=== PATIENT | male | born 1980 | race Caucasian/White ===

== ENCOUNTER 2019-04-30 15:40 | Inpatient (IN) ==
[~2019-04-30 15:40] MED LIST: KETAMINE HCL INJ 50 MG/ML 10 ML VIAL IV ONE
[2019-04-30] MEDS ORDERED: NALOXONE HCL 0.4 MG/1 ML VIAL/CARP IV STA (15:50)
[2019-04-30] MEDS ORDERED: SODIUM CHLORIDE 0.9% 1000ML 1,000 ML IV SCH (16:00)
[2019-04-30 16:24] LABS: Basophils # (auto) 0.04 K/uL (0-0.2); Basophils % (auto) 0.4 %; Eosinophils # (auto) 0.94 K/uL (0-0.5); Eosinophils % (auto) 9.9 %; Hematocrit (blood only) 43.8 % (42-52); Hemoglobin 15.5 g/dL (14.0-18.0); Immature Granulocytes # (auto) 0.01 K/uL (0.00-0.02); Immature Granulocytes % (auto) 0.1 %; Lymphocytes # (auto) 2.81 K/uL (1.2-3.4); Lymphocytes % (auto) 29.6 %; Mean Corpuscular Hgb Conc 35.4 g/dL (32-36); Mean Corpuscular Volume 88.8 fL (80-100); Mean Platelet Volume 10.1 fL (7.4-10.4); Monocytes # (auto) 0.73 K/uL (0.11-0.59); Monocytes % (auto) 7.7 %; Neutrophils # (auto) 4.97 K/uL (1.4-6.5); Neutrophils % (auto) 52.3 %; Platelet Count 181 K/uL (130-400); RDW Coefficient of Variation 13.2 % (11.5-14.5); RDW Standard Deviation 42.9 fL (36.4-46.3); Red Blood Count 4.93 M/uL (4.7-6.1)
[2019-04-30 16:31] LABS: INR 1.1 (0.9-1.1); Prothrombin Time 10.8 Seconds (9.0-12.0)
[2019-04-30 16:33] LABS: Base Excess VBG 2.3 mEq/L; Oxygen Saturation VBG 60.2 %; pH VBG 7.37 (7.36-7.41)
--- NOTE | 2019-04-30 16:44 | XRay Report ---
XR chest 1V portable HISTORY: weakness COMPARISON: None. FINDINGS: The lungs are clear. Cardiac silhouette is normal in size. No pleural effusions. No pneumot horax. IMPRESSION: No acute process. Electronically signed by: Junito Dooley M.D. 04/30/2019 4:43 PM
[2019-04-30 16:48] LABS: Alanine Aminotransferase 193 U/L (12-78); Albumin Level 3.9 gm/dl (3.4-5.0); Aspartate Aminotransferase 112 U/L (15-37); BUN Creatinine Ratio 13.3 (10-20); Blood Urea Nitrogen 13 mg/dl (7-18); Calcium 9.1 mg/dl (8.5-10.1); Carbon Dioxide 29 mmol/L (21-32); Chloride 106 mmol/L (98-107); Creatinine Clr Calc Pharmacy 111.5 ml/min; Est GFR (African American) 111.5; Est GFR (Non-African American) 96.2; Glucose 72 mg/dl (70-99); Magnesium 2.1 mg/dl (1.8-2.4); Potassium 4.2 mmol/L (3.5-5.1); Sodium 140 mmol/L (136-145)
--- NOTE | 2019-04-30 16:56 | CT Scan Report ---
CT head/brain wo con CLINICAL HISTORY: 38 years-old Male with ams. Acutely altered mental status TECHNIQUE: Multiple axial CT images of the head were obtained without contrast. A dose lowering tech nique was utilized adhering to the principles of ALARA. CT DOSE: 2150.48 mGycm COMPARISON: None. FINDINGS: Motion degraded exam. No acute intracranial hemorrhage, midline shift, intracranial mass, hydrocephal us, territorial ischemia or abnormal extra-axial collection. The calvarium is intact. Mild mucosal thickening about the ethmoid air cells. Mastoid air cells are clear. Soft tissues and orbits are unremarkable. IMPRESSION: Motion degraded exam without acute intracranial abnormality. The above report was generated using voice recognition software. It may contain grammatical, syntax o r spelling errors. Electronically signed by: Laron Mixon M.D. 04/30/2019 4:55 PM
[2019-04-30 16:58] LABS: Albumin Globulin Ratio 1.1 (0.9-2); Alkaline Phosphatase 93 U/L (45-117); Bilirubin,Total 0.6 mg/dl (0.2-1); Creatine Kinase 112 U/L (39-308); Globulin 3.4 gm/dl (2.5-4.0); Total Protein 7.3 gm/dl (6.4-8.2); Troponin I < 0.015 ng/ml (0-0.045)
[2019-04-30 17:09] LABS: Acetaminophen < 2 ug/ml (10-30); Salicylate 2.9 mg/dl (2.8-20)
[2019-04-30 17:17] LABS: Appearance Urine Clear (Clear); Bilirubin Urine Negative (Negative); Blood Urine Negative (Negative); Color Urine Yellow; Glucose Urine UA Negative (Negative); Ketones Urine Negative (Negative); Leukocyte Esterase Urine Negative (Negative); Nitrite Urine Negative (Negative); Protein Urine Negative (Negative); Specific Gravity Urine 1.009 (1.000-1.030); Urobilinogen Urine Negative (Negative); pH Urine 7.5 (4.5-7.5)
[2019-04-30 17:37] LABS: Amphetamines+Metham, Urine Neg (Neg); Barbiturates, Urine Neg (Neg); Benzodiazepine, Urine Pos (Neg); Cocaine, Urine Neg (Neg); MDMA (Ecstacy), Urine Neg (Neg); Methadone, Urine Neg (Neg); Opiate, Urine Neg (Neg); Phencyclidine, Urine Neg (Neg)
[2019-04-30] MEDS ORDERED: HALOPERIDOL LACTATE 5 MG/ML 1 ML VIAL IM STA ×2 (17:49→18:16)
[2019-04-30] MEDS ORDERED: LORazepam 2 MG/ML VIAL (IM USE) IM STA (18:17)
[2019-04-30] MEDS ORDERED: LORazepam 2 MG/4 ML VIAL ONE (18:19)
--- NOTE | 2019-04-30 19:39 | History & Physical Report ---
Date of Service April 30, 2019 Assessment & Plan (1) Altered mental status: 2nd to apparent overdose of probably multiple substances. Tox screen + for benzodiazepines (tox screen was obtained BEFORE he had received ativan in the ER). However, benzo overdose would not fully explain his symptoms and presentation. Suspect some other illicit hallucinogenic agent such as bath salts, etc. He needed copious amounts of sedatives in the ER and nearly required leather restraints due to his combativeness. Thus, will place him in the ICU in the event he needs 1:1 sitter, IV sedatives (bolus and/or drip), further restraints, or even intubation for airway protection while receiving sedation. I do not see any metabolic causes of his presentation or infectious etiology. CT head was negative. Present on Admission?: Yes (2) Chronic narcotic dependence: Takes 8mg of daily suboxone. His mother apparently administers this to him daily. He does not have the bottle of suboxone in his possession at his home per the significant other. Goes to suboxone clinic in [facility] I do not think he overdosed on narcotics as he had little response to copious amounts of narcan. Present on Admission?: Yes (3) Social anxiety disorder: Severe by history. Does not follow with psych or any medical provider. Present on Admission?: Yes (4) Benzodiazepine overdose: Tox screen positive for benzos but this is unlikely to be the sole cause of his presentation. See above. Present on Admission?: Yes (5) Abnormal LFTs: Suspect toxin-related. Numerous illicit substances can cause a transaminitis. Will repeat LFTs in the am. No evidence of tylenol overdose (no tylenol bottles found at the scene, etc). Doubt related to alcohol (etoh level 0). Present on Admission?: Yes (6) DVT prophylaxis: lovenox 40mg daily FEN - NPO, D5NS w/ KCL at 125cc/hr, repeat BMP/mag in am. significant other updated at bedside total time about 70 min patient to be admitted to ICU; care d/w ICU attending, Dr Huber History of Present Illness Chief Complaint: altered mental status Primary Care Provider: NO PCP 38yo male with history of severe anxiety disorder, social anxiety disorder, benzodiazepine abuse, and chronic suboxone use who presents from his home in [place] via EMS after having been found in his bathroom at home with altered mental status. The patient was considerably altered and could not provide any information during my assessment. Thus, all information was gathered from the chart as well as from his girlfriend with whom he lives. The patient's girlfriend states that at 745 this am she was preparing to go to work and Mr Arora at that time was awake, alert, oriented and in his usual state of health. The patient was at his home all day with his 2 children, ages 7 and 13. 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 Sometime about 330pm the patient's step-father left the house and went to the business next door. A few minutes later, upon his return to the house, the step-father found Mr Arora in the bathroom altered. He was apparently leaning up against the wall with a bowl of dog food close by and was altered. EMS was summoned to the house. Upon their arrival 4 doses of intra-nasal narcan was given to him. He was then given 2 more doses of IV narcan upon ambulance transport. He ultimately needed restraints. The narcan given in the ambulance had only a transient effect. Upon arrival to [facility] he continued to be altered. Additional narcan of 2mg was given IV without any effect on his mental status per staff members. He was combative, and needed 10mg of IM haldol and 2mg of IM ativan to become more calm. His girlfriend reports no obvious illicit drug use recently or in the past. He does not have access to prescription benzodiazepines or other controlled substances. He takes chronic suboxone, 8mg daily, but his mother keeps it at her house and she administers it to him herself. His girlfriend takes 2 antidepressants (SSRIs) but no controlled substances. Girlfriend reports he drinks little alcohol (1-2 beers/month) but the ER record states he drank earlier in the day. Lastly, his girlfriend reports that Mr Arora has had significant stressors causing increased anxiety. He apparently has been suffering from bad dreams which has led to worsening anxiety. He has had concerns about his girlfriend's health as well. During my assessment the patient was altered, shifting constantly on the bed, and was combative. Allergies Allergy/AdvReac Type Severity Reaction Status Date / Time codeine Allergy Mild Unknown Unverified 04/30/19 16:11 Penicillins Allergy Mild Unknown Unverified 04/30/19 16:11 Home Medications Home Medications Medication Instructions Recorded Confirmed Type Medical Marijuana 1 dose INHALATION UD PRN 04/30/19 04/30/19 History buprenorphine HCl 8 mg SUBLINGUAL QAM 04/30/19 04/30/19 History Past Med/Surg History Medical History Social anxiety disorder (Chronic) Panic disorder (Chronic) Benzodiazepine abuse (Acute) Benzodiazepine dependence (Acute) Overuse of medication (Acute) Chronic narcotic dependence (Chronic) No known health problems Surgical History No history of previous surgery Family History Other Family history non-contributory Social History marital status: Single marital status details: has significant other Current Living Situation: Significant Other Current Living Situation Comment: lives with girlfriend and 2 children in [place] current occupational status: employed current occupation: works for [employer] business Feels Safe at Home: Yes Smoking Status: Current every day smoker packs per day: 1 ; Hx Alcohol Use: Yes Alcohol type: beer Alcohol Intake Frequency: Holidays/Special Occasions Hx Substance Use: No Review of Systems Review of Systems: Unobtainable due to mental health condition and Unobta inable due to cognitive status Physical Exam Constitutional: average body habitus, + altered mental status and + disheveled Eyes: PERRL (pupils 2 mm b/l) ENMT: Mouth: + dry oral mucous membranes and + poor dentition Throat: no posterior oropharynx abnormality Neck: trachea midline, no thyromegaly Respiratory: normal respiratory effort, lungs clear to auscultation Cardiovascular: Rate/Rhythm: regular rate and regular rhythm Heart Sounds: normal S1 and normal S2; no murmur Vessels: posterior tibial pulses present and dorsalis pedis pulses present; no JVD Gastrointestinal (Abdomen): normal bowel sounds, soft, nontender, no hepatosplenomegaly Musculoskeletal: moving all 4 limbs equally on the gurney Skin: 2 band-aids present from prior IM injections; no rash; well-tanned skin Neurologic: downgoing babinski's; moves all 4 limbs; no nystagmus; PERRL; DTRs 1+ b/l Psychiatric: Orientation: + not alert Lymphatic: no cervical lymphadenopathy Results & Data Vital Signs (Past 12 Hours) Vital Signs Temp Pulse Pulse Resp BP BP Pulse Ox 04/30/19 19:30 76 25 H 95/52 L 93 04/30/19 19:00 80 27 H 103/61 94 04/30/19 18:27 90 22 135/85 96 04/30/19 17:16 98 H 20 112/56 L 04/30/19 16:46 82 23 132/78 04/30/19 16:03 80 20 118/84 98 04/30/19 15:48 36.7 C 89 20 112/77 97 04/30/19 15:46 80 21 112/77 97 Laboratory Results Laboratory Results - last 24 hr 04/30/19 04/30/19 04/30/19 16:02 16:02 16:02 WBC 9.50 RBC 4.93 Hgb 15.5 Hct 43.8 MCV 88.8 MCH 31.4 MCHC 35.4 RDW Std Deviation 42.9 RDW Coeff of Hussein 13.2 Plt Count 181 MPV 10.1 Immature Gran % (Auto) 0.1 Neut % (Auto) 52.3 Lymph % (Auto) 29.6 Nye % (Auto) 7.7 Eos % (Auto) 9.9 Baso % (Auto) 0.4 Immature Gran # (Auto) 0.01 Neut # (Auto) 4.97 Lymph # (Auto) 2.81 Nye # (Auto) 0.73 H Eos # (Auto) 0.94 H Baso # (Auto) 0.04 PT 10.8 INR 1.1 VBG pH VBG pCO2 VBG pO2 VBG HCO3 VBG O2 Saturation VBG Base Excess Barometric Pressure Sodium 140 Potassium 4.2 Chloride 106 Carbon Dioxide 29 Anion Gap 5.0 BUN 13 Creatinine 0.99 Est Cr Clr Drug Dosing 111.5 Est GFR ( Amer) 111.5 Est GFR (Non-Af Amer) 96.2 BUN/Creatinine Ratio 13.3 Glucose 72 Calcium 9.1 Magnesium 2.1 Total Bilirubin 0.6 AST 112 H ALT 193 H Alkaline Phosphatase 93 Ammonia Total Creatine Kinase 112 Troponin I < 0.015 Total Protein 7.3 Albumin 3.9 Globulin 3.4 Albumin/Globulin Ratio 1.1 TSH 3.890 Urine Color Urine Appearance Urine pH Ur Specific [place] Urine Protein Urine Glucose (UA) Urine Ketones Urine Blood Urine Nitrite Urine Bilirubin Urine Urobilinogen Ur Leukocyte Esterase Salicylates Urine Opiates Screen Ur Methadone, Qual Acetaminophen Urine Barbiturates Ur Phencyclidine (PCP) U Amphetamin/Meth Scrn MDMA (Ecstasy) Screen U OH-Alprazolam Confrm U Benzodiazepines Scrn 7-Amino Clonazepam Ur Nordiazepam Confirm U OH-ethylflurazepam U Lorazepam Cnf GC/MS U Oxazepam Confm GC/MS Ur Temazepam Confirm U OH-Triazolam Confirm U OH-Midazolam Confirm Ur Cocaine Metabolite U Marijuana (THC) Screen Ethyl Alcohol mg/dL 04/30/19 04/30/19 04/30/19 16:02 16:02 16:02 WBC RBC Hgb Hct MCV MCH MCHC RDW Std Deviation RDW Coeff of Hussein Plt Count MPV Immature Gran % (Auto) Neut % (Auto) Lymph % (Auto) Nye % (Auto) Eos % (Auto) Baso % (Auto) Immature Gran # (Auto) Neut # (Auto) Lymph # (Auto) Nye # (Auto) Eos # (Auto) Baso # (Auto) PT INR VBG pH VBG pCO2 VBG pO2 VBG HCO3 VBG O2 Saturation VBG Base Excess Barometric Pressure Sodium Potassium Chloride Carbon Dioxide Anion Gap BUN Creatinine Est Cr Clr Drug Dosing Est GFR ( Amer) Est GFR (Non-Af Amer) BUN/Creatinine Ratio Glucose Calcium Magnesium Total Bilirubin AST ALT Alkaline Phosphatase Ammonia 35.9 H Total Creatine Kinase Troponin I Total Protein Albumin Globulin Albumin/Globulin Ratio TSH Urine Color Urine Appearance Urine pH Ur Specific [place] Urine Protein Urine Glucose (UA) Urine Ketones Urine Blood Urine Nitrite Urine Bilirubin Urine Urobilinogen Ur Leukocyte Esterase Salicylates 2.9 Urine Opiates Screen Ur Methadone, Qual Acetaminophen < 2 L Urine Barbiturates Ur Phencyclidine (PCP) U Amphetamin/Meth Scrn MDMA (Ecstasy) Screen U OH-Alprazolam Confrm U Benzodiazepines Scrn 7-Amino Clonazepam Ur Nordiazepam Confirm U OH-ethylflurazepam U Lorazepam Cnf GC/MS U Oxazepam Confm GC/MS Ur Temazepam Confirm U OH-Triazolam Confirm U OH-Midazolam Confirm Ur Cocaine Metabolite U Marijuana (THC) Screen Ethyl Alcohol mg/dL < 3.0 04/30/19 04/30/19 04/30/19 16:02 17:00 17:00 WBC RBC Hgb Hct MCV MCH MCHC RDW Std Deviation RDW Coeff of Hussein Plt Count MPV Immature Gran % (Auto) Neut % (Auto) Lymph % (Auto) Nye % (Auto) Eos % (Auto) Baso % (Auto) Immature Gran # (Auto) Neut # (Auto) Lymph # (Auto) Nye # (Auto) Eos # (Auto) Baso # (Auto) PT INR VBG pH 7.37 VBG pCO2 51 H VBG pO2 29 VBG HCO3 29 VBG O2 Saturation 60.2 VBG Base Excess 2.3 Barometric Pressure 734.8 Sodium Potassium Chloride Carbon Dioxide Anion Gap BUN Creatinine Est Cr Clr Drug Dosing Est GFR ( Amer) Est GFR (Non-Af Amer) BUN/Creatinine Ratio Glucose Calcium Magnesium Total Bilirubin AST ALT Alkaline Phosphatase Ammonia Total Creatine Kinase Troponin I Total Protein Albumin Globulin Albumin/Globulin Ratio TSH Urine Color Yellow Urine Appearance Clear Urine pH 7.5 Ur Specific [place] 1.009 Urine Protein Negative Urine Glucose (UA) Negative Urine Ketones Negative Urine Blood Negative Urine Nitrite Negative Urine Bilirubin Negative Urine Urobilinogen Negative Ur Leukocyte Esterase Negative Salicylates Urine Opiates Screen Neg Ur Methadone, Qual Neg Acetaminophen Urine Barbiturates Neg Ur Phencyclidine (PCP) Neg U Amphetamin/Meth Scrn Neg MDMA (Ecstasy) Screen Neg U OH-Alprazolam Confrm U Benzodiazepines Scrn Pos H 7-Amino Clonazepam Ur Nordiazepam Confirm U OH-ethylflurazepam U Lorazepam Cnf GC/MS U Oxazepam Confm GC/MS Ur Temazepam Confirm U OH-Triazolam Confirm U OH-Midazolam Confirm Ur Cocaine Metabolite Neg U Marijuana (THC) Screen Neg Ethyl Alcohol mg/dL 04/30/19 17:00 WBC RBC Hgb Hct MCV MCH MCHC RDW Std Deviation RDW Coeff of Hussein Plt Count MPV Immature Gran % (Auto) Neut % (Auto) Lymph % (Auto) Nye % (Auto) Eos % (Auto) Baso % (Auto) Immature Gran # (Auto) Neut # (Auto) Lymph # (Auto) Nye # (Auto) Eos # (Auto) Baso # (Auto) PT INR VBG pH VBG pCO2 VBG pO2 VBG HCO3 VBG O2 Saturation VBG Base Excess Barometric Pressure Sodium Potassium Chloride Carbon Dioxide Anion Gap BUN Creatinine Est Cr Clr Drug Dosing Est GFR ( Amer) Est GFR (Non-Af Amer) BUN/Creatinine Ratio Glucose Calcium Magnesium Total Bilirubin AST ALT Alkaline Phosphatase Ammonia Total Creatine Kinase Troponin I Total Protein Albumin Globulin Albumin/Globulin Ratio TSH Urine Color Urine Appearance Urine pH Ur Specific [place] Urine Protein Urine Glucose (UA) Urine Ketones Urine Blood Urine Nitrite Urine Bilirubin Urine Urobilinogen Ur Leukocyte Esterase Salicylates Urine Opiates Screen Ur Methadone, Qual Acetaminophen Urine Barbiturates Ur Phencyclidine (PCP) U Amphetamin/Meth Scrn MDMA (Ecstasy) Screen U OH-Alprazolam Confrm Pending U Benzodiazepines Scrn 7-Amino Clonazepam Pending Ur Nordiazepam Confirm Pending U OH-ethylflurazepam Pending U Lorazepam Cnf GC/MS Pending U Oxazepam Confm GC/MS Pending Ur Temazepam Confirm Pending U OH-Triazolam Confirm Pending U OH-Midazolam Confirm Pending Ur Cocaine Metabolite U Marijuana (THC) Screen Ethyl Alcohol mg/dL Diagnostic Findings 1. cxr - no acute findings 2. ekg - NSR, no ST changes 3. CT head - no acute findings Code Status & VTE Plan Code Status full code VTE Prophylaxis Plan VTE Prophylaxis will be ordered: Yes PG Care Time/CCT Total # of Minutes Spent Total Time Spent with Patient: Total time spent is greater than 50% in coordination of care (as documented) at patient's floor/unit and/or counseling patient: (1) Altered mental status Altered mental status type: unspecified Qualified Code(s): R41.82 - Altered mental status, unspecified (2) Benzodiazepine overdose Encounter type: initial encounter Injury intent: undetermined intent Qualified Code(s): T42.4X4A - Poisoning by benzodiazepines, undetermined, initial encounter
--- NOTE | 2019-04-30 19:58 | Emergency Department Note ---
Entered by Reema Meade acting as a scribe for Ignacio Worthy M.D. History of Present Illness General Chief complaint: Unresponsive Stated complaint: UNRESPONSIVE Time Seen by Provider: 04/30/19 15:49 Source: EMS and other (girlfriend) Limitations: altered mental status History of Present Illness Onset (ago): minute(s) (prior to arrival) Location: head Pain Consistency: + other (episode) Quality: + other (unresponsiveness) The patient is a 38 year old male who presents to the Emergency Room with complaints of an episode of unresponsiveness starting prior to arrival. Per EMS, the patients son found him on the bathroom floor unresponsive. They state that his son called his grandfather, the patients father, to help. They report that he called 911. They state that upon arrival the patient was not responsive. They report that he was leaning up against the wall with a full size pillow and a tote of dog food underneath him. They report that they ended up giving him 4 of intranasal Narcan and 2 IV. They note that each time he would come to, but the n would go back out. They note he did admit to having 2 alcoholic drinks today. They note that his legs were in soft restraints on the way here as he was kicking when they first arrived. The patients girlfriend state that she lives with him and he was fine this morning. She reports that he is on Suboxone, but it is delivered to his house every morning. She notes that he also has a medical marijuana card. HPI and ROS are limited secondary to altered mental status. Home Medications Home Medications Medication Instructions Recorded Confirmed Type Medical Marijuana 1 dose INHALATION UD PRN 04/30/19 04/30/19 History buprenorphine HCl 8 mg SUBLINGUAL QAM 04/30/19 04/30/19 History Allergies Allergy/AdvReac Type Severity Reaction Status Date / Time codeine Allergy Mild Unknown Unverified 04/30/19 16:11 Penicillins Allergy Mild Unknown Unverified 04/30/19 16:11 Past Med/Surg History Medical History Social anxiety disorder (Chronic) Panic disorder (Chronic) Benzodiazepine abuse (Acute) Benzodiazepine dependence (Acute) Overuse of medication (Acute) No known health problems Family History Other Family history non-contributory Social History marital status: Single Current Living Situation: Significant Other current occupational status: employed Feels Safe at Home: Yes Smoking Status: Current every day smoker Review of Systems HPI and ROS are limited secondary to altered mental status. Physical Exam Vital Signs Vital Signs - 24 hr 04/30/19 15:46 04/30/19 15:48 04/30/19 16:03 Temperature 36.7 C Temperature Source Oral Sepsis Recent Fever Within 48 Hours No Sepsis New/Unexplained Change in Mental Status No Sepsis Action Taken by Nursing No Action Required Pulse Rate 80 89 80 Pulse Rate [Right Finger] Pulse Rate from SpO2 Sensor 81 79 Pulse Rhythm Regular Pulse Rhythm [Right Finger] Pulse Strength Normal Pulse Strength [Right Finger] Respiratory Rate 21 20 20 Respiratory Effort / Characteristics Non-Labored Respiratory Depth Normal Respiratory Pattern Regular Blood Pressure 112/77 112/77 118/84 Blood Pressure [Left Arm] Blood Pressure Mean 88 88 95 Blood Pressure Mean [Left Arm] Blood Pressure Position Lying Blood Pressure Position [Left Arm] Pulse Oximetry 97 97 98 Oxygen Delivery Method Room Air 04/30/19 16:46 04/30/19 17:16 04/30/19 18:27 Temperature Temperature Source Sepsis Recent Fever Within 48 Hours Sepsis New/Unexplained Change in Mental Status Sepsis Action Taken by Nursing Pulse Rate 82 98 H Pulse Rate [Right Finger] 90 Pulse Rate from SpO2 Sensor Pulse Rhythm Pulse Rhythm [Right Finger] Pulse Strength Pulse Strength [Right Finger] Respiratory Rate 23 20 22 Respiratory Effort / Characteristics Respiratory Depth Respiratory Pattern Blood Pressure 132/78 112/56 L Blood Pressure [Left Arm] 135/85 Blood Pressure Mean 96 74 Blood Pressure Mean [Left Arm] 101 Blood Pressure Position Blood Pressure Position [Left Arm] Pulse Oximetry 96 Oxygen Delivery Method 04/30/19 19:00 04/30/19 19:30 Temperature Temperature Source Sepsis Recent Fever Within 48 Hours Sepsis New/Unexplained Change in Mental Status Sepsis Action Taken by Nursing Pulse Rate Pulse Rate [Right Finger] 80 76 Pulse Rate from SpO2 Sensor Pulse Rhythm Pulse Rhythm [Right Finger] Regular Pulse Strength Pulse Strength [Right Finger] Normal Respiratory Rate 27 H 25 H Respiratory Effort / Characteristics Non-Labored Non-Labored Respiratory Depth Normal Normal Respiratory Pattern Regular Regular Blood Pressure Blood Pressure [Left Arm] 103/61 95/52 L Blood Pressure Mean Blood Pressure Mean [Left Arm] 75 66 Blood Pressure Position Blood Pressure Position [Left Arm] Sitting Sitting Pulse Oximetry 94 93 Oxygen Delivery Method Room Air Room Air GENERAL: Eyes closed. Alert to loud verbal stimuli. Occasionally trying to climb out of bed. HENT: Normocephalic, atraumatic. Oropharynx unremarkable. EYES: Normal conjunctiva. Pupils are 4 mm and minimally reactive. Sclera non- icteric. NECK: Supple. No nuchal rigidity. RESPIRATORY: Clear to auscultation. No wheezes. Normal respiratory effort. CARDIAC: Normal rate. Normal rhythm. Extremities warm and well perfused. GI: Soft, non-distended. No tenderness to palpation. No rebound or guarding. No masses. RECTAL: Deferred. MUSCULOSKELETAL: Atraumatic. Chest examination reveals no tenderness. There is no CVA tenderness to palpation. Slight abrasion to his right knuckles. LOWER EXTREMITIES: Calves are equal size bilaterally and non-tender. No edema. Small abrasion on his left banegas. NEURO: Moving all extremities. Will reply to his name. No clonus. No facial droop. SKIN: Warm and dry. No rash or jaundice noted. Course 1454: Past medical records reviewed. The patient was evaluated in room A1. A complete history and physical exam was performed. 1625: I reevaluated the patient and he has not had much change in his respons iveness. 1712: I reevaluated the patient and he is still the same. 1740: I reevaluated the patient and he has had no significant change in his condition. I updated his girlfriend and step-father on his condition. I discussed the test results and treatment plan with them. They verbally agree and understand. 1815: I discussed the patient'scse with Dr. Maria Del Carmen Pennington. He will evaluate the patient for further management. 1827: I reevaluated the patient and he had to be placed in restraints as he became combative. 1845: I discussed the patient's case with Dr. Iza Pennington. He will evaluate the patient and is at bedside as Dr. Banerjee passed his case off. Consultations Consultation #1: I discussed the patient'scse with Dr. Maria Del Carmen Pennington. He will evaluate the patient for further management. Time: 18:15 Consultation #2: I discussed the patient's case with Dr. Couch [facility]. He will evaluate the patient and is at bedside as Dr. Banerjee passed his case off. Time: 18:45 Administered Medications Discontinued Medications Haloperidol Lactate (Haldol) 5 mg IM NOW STA Stop: 04/30/19 17:50 Last Admin: 04/30/19 18:06 Dose: 5 mg Documented by: [id number] Haloperidol Lactate (Haldol) 5 mg IM NOW STA Stop: 04/30/19 18:17 Last Admin: 04/30/19 18:23 Dose: 5 mg Documented by: [id number] Sodium Chloride (Nss 1000ml) 1,000 mls @ 999 mls/hr IV .Q1H1M MAGDA Stop: 04/30/19 17:00 Last Infusion: 04/30/19 17:47 Dose: 0 mls/hr Documented by: [id number] Admin: 04/30/19 16:00 Dose: 999 mls/hr Documented by: [id number] Lorazepam (Ativan) 2 mg IM NOW STA Stop: 04/30/19 18:18 Last Admin: 04/30/19 18:23 Dose: 2 mg Documented by: [id number] Lorazepam (Ativan) Confirm Administered Dose 2 mg .ROUTE .STK-MED ONE Stop: 04/30/19 18:20 Last Admin: 04/30/19 18:23 Dose: Not Given Documented by: [id number] Naloxone HCl (Narcan) 2 mg IV NOW STA Stop: 04/30/19 15:51 Last Admin: 04/30/19 16:00 Dose: 2 mg Documented by: [id number] Medical Decision Making Differential Diagnosis Differential diagnoses includes but is not limited to toxic, metabolic, infectious, traumatic, cardiac, neurologic, hematologic, psychiatric and inflammatory etiologies. Medical Records Attestation: I reviewed the patient's medical records. Home Medications Current Medication List: was personally reviewed by me Laboratory Data Attestation: I reviewed the patient's lab results. Result diagrams: 04/30/19 16:02 04/30/19 16:02 Lab Results 04/30/19 04/30/19 04/30/19 Range/Units 16:02 16:02 16:02 WBC 9.50 (4.8-10.8) K/uL RBC 4.93 (4.7-6.1) M/uL Hgb 15.5 (14.0-18.0) g/dL Hct 43.8 (42-52) % MCV 88.8 (80-100) fL MCH 31.4 (25-34) pg MCHC 35.4 (32-36) g/dL RDW Std Deviation 42.9 (36.4-46.3) fL RDW Coeff of Hussein 13.2 (11.5-14.5) % Plt Count 181 (130-400) K/uL MPV 10.1 (7.4-10.4) fL Immature Gran % (Auto) 0.1 % Neut % (Auto) 52.3 % Lymph % (Auto) 29.6 % [place] % (Auto) 7.7 % Eos % (Auto) 9.9 % Baso % (Auto) 0.4 % Immature Gran # (Auto) 0.01 (0.00-0.02) K/uL Neut # (Auto) 4.97 (1.4-6.5) K/uL Lymph # (Auto) 2.81 (1.2-3.4) K/uL [place] # (Auto) 0.73 H (0.11-0.59) K/uL Eos # (Auto) 0.94 H (0-0.5) K/uL Baso # (Auto) 0.04 (0-0.2) K/uL PT 10.8 (9.0-12.0) Seconds INR 1.1 (0.9-1.1) VBG pH (7.36-7.41) VBG pCO2 (38-50) mmHg VBG pO2 mmHg VBG HCO3 mmol/L VBG O2 Saturation % VBG Base Excess mEq/L Barometric Pressure mm/Hg Sodium 140 (136-145) mmol/L Potassium 4.2 (3.5-5.1) mmol/L Chloride 106 (98-107) mmol/L Carbon Dioxide 29 (21-32) mmol/L Anion Gap 5.0 (3-11) BUN 13 (7-18) mg/dl Creatinine 0.99 (0.6-1.4) mg/dl Est Cr Clr Drug Dosing 111.5 ml/min Est GFR ( Amer) 111.5 Est GFR (Non-Af Amer) 96.2 BUN/Creatinine Ratio 13.3 (10-20) Glucose 72 (70-99) mg/dl Calcium 9.1 (8.5-10.1) mg/dl Magnesium 2.1 (1.8-2.4) mg/dl Total Bilirubin 0.6 (0.2-1) mg/dl AST 112 H (15-37) U/L ALT 193 H (12-78) U/L Alkaline Phosphatase 93 (45-117) U/L Ammonia (11-32) umol/L Total Creatine Kinase 112 (39-308) U/L Troponin I < 0.015 (0-0.045) ng/ml Total Protein 7.3 (6.4-8.2) gm/dl Albumin 3.9 (3.4-5.0) gm/dl Globulin 3.4 (2.5-4.0) gm/dl Albumin/Globulin Ratio 1.1 (0.9-2) TSH 3.890 (0.300-4.500) uIu/ml Urine Color Urine Appearance (Clear) Urine pH (4.5-7.5) Ur Specific [place] (1.000-1.030) Urine Protein (Negative) Urine Glucose (UA) (Negative) Urine Ketones (Negative) Urine Blood (Negative) Urine Nitrite (Negative) Urine Bilirubin (Negative) Urine Urobilinogen (Negative) Ur Leukocyte Esterase (Negative) Salicylates (2.8-20) mg/dl Urine Opiates Screen (Neg) Ur Methadone, Qual (Neg) Acetaminophen (10-30) ug/ml Urine Barbiturates (Neg) Ur Phencyclidine (PCP) (Neg) U Amphetamin/Meth Scrn (Neg) MDMA (Ecstasy) Screen (Neg) U Benzodiazepines Scrn (Neg) Ur Cocaine Metabolite (Neg) U Marijuana (THC) Screen (Neg) Ethyl Alcohol mg/dL (0-3) mg/dl 04/30/19 04/30/19 04/30/19 Range/Units 16:02 16:02 16:02 WBC (4.8-10.8) K/uL RBC (4.7-6.1) M/uL Hgb (14.0-18.0) g/dL Hct (42-52) % MCV (80-100) fL MCH (25-34) pg MCHC (32-36) g/dL RDW Std Deviation (36.4-46.3) fL RDW Coeff of Hussein (11.5-14.5) % Plt Count (130-400) K/uL MPV (7.4-10.4) fL Immature Gran % (Auto) % Neut % (Auto) % Lymph % (Auto) % [place] % (Auto) % Eos % (Auto) % Baso % (Auto) % Immature Gran # (Auto) (0.00-0.02) K/uL Neut # (Auto) (1.4-6.5) K/uL Lymph # (Auto) (1.2-3.4) K/uL [place] # (Auto) (0.11-0.59) K/uL Eos # (Auto) (0-0.5) K/uL Baso # (Auto) (0-0.2) K/uL PT (9.0-12.0) Seconds INR (0.9-1.1) VBG pH (7.36-7.41) VBG pCO2 (38-50) mmHg VBG pO2 mmHg VBG HCO3 mmol/L VBG O2 Saturation % VBG Base Excess mEq/L Barometric Pressure mm/Hg Sodium (136-145) mmol/L Potassium (3.5-5.1) mmol/L Chloride (98-107) mmol/L Carbon Dioxide (21-32) mmol/L Anion Gap (3-11) BUN (7-18) mg/dl Creatinine (0.6-1.4) mg/dl Est Cr Clr Drug Dosing ml/min Est GFR ( Amer) Est GFR (Non-Af Amer) BUN/Creatinine Ratio (10-20) Glucose (70-99) mg/dl Calcium (8.5-10.1) mg/dl Magnesium (1.8-2.4) mg/dl Total Bilirubin (0.2-1) mg/dl AST (15-37) U/L ALT (12-78) U/L Alkaline Phosphatase (45-117) U/L Ammonia 35.9 H (11-32) umol/L Total Creatine Kinase (39-308) U/L Troponin I (0-0.045) ng/ml Total Protein (6.4-8.2) gm/dl Albumin (3.4-5.0) gm/dl Globulin (2.5-4.0) gm/dl Albumin/Globulin Ratio (0.9-2) TSH (0.300-4.500) uIu/ml Urine Color Urine Appearance (Clear) Urine pH (4.5-7.5) Ur Specific [place] (1.000-1.030) Urine Protein (Negative) Urine Glucose (UA) (Negative) Urine Ketones (Negative) Urine Blood (Negative) Urine Nitrite (Negative) Urine Bilirubin (Negative) Urine Urobilinogen (Negative) Ur Leukocyte Esterase (Negative) Salicylates 2.9 (2.8-20) mg/dl Urine Opiates Screen (Neg) Ur Methadone, Qual (Neg) Acetaminophen < 2 L (10-30) ug/ml Urine Barbiturates (Neg) Ur Phencyclidine (PCP) (Neg) U Amphetamin/Meth Scrn (Neg) MDMA (Ecstasy) Screen (Neg) U Benzodiazepines Scrn (Neg) Ur Cocaine Metabolite (Neg) U Marijuana (THC) Screen (Neg) Ethyl Alcohol mg/dL < 3.0 (0-3) mg/dl 04/30/19 04/30/19 04/30/19 Range/Units 16:02 17:00 17:00 WBC (4.8-10.8) K/uL RBC (4.7-6.1) M/uL Hgb (14.0-18.0) g/dL Hct (42-52) % MCV (80-100) fL MCH (25-34) pg MCHC (32-36) g/dL RDW Std Deviation (36.4-46.3) fL RDW Coeff of Hussein (11.5-14.5) % Plt Count (130-400) K/uL MPV (7.4-10.4) fL Immature Gran % (Auto) % Neut % (Auto) % Lymph % (Auto) % [place] % (Auto) % Eos % (Auto) % Baso % (Auto) % Immature Gran # (Auto) (0.00-0.02) K/uL Neut # (Auto) (1.4-6.5) K/uL Lymph # (Auto) (1.2-3.4) K/uL [place] # (Auto) (0.11-0.59) K/uL Eos # (Auto) (0-0.5) K/uL Baso # (Auto) (0-0.2) K/uL PT (9.0-12.0) Seconds INR (0.9-1.1) VBG pH 7.37 (7.36-7.41) VBG pCO2 51 H (38-50) mmHg VBG pO2 29 mmHg VBG HCO3 29 mmol/L VBG O2 Saturation 60.2 % VBG Base Excess 2.3 mEq/L Barometric Pressure 734.8 mm/Hg Sodium (136-145) mmol/L Potassium (3.5-5.1) mmol/L Chloride (98-107) mmol/L Carbon Dioxide (21-32) mmol/L Anion Gap (3-11) BUN (7-18) mg/dl Creatinine (0.6-1.4) mg/dl Est Cr Clr Drug Dosing ml/min Est GFR ( Amer) Est GFR (Non-Af Amer) BUN/Creatinine Ratio (10-20) Glucose (70-99) mg/dl Calcium (8.5-10.1) mg/dl Magnesium (1.8-2.4) mg/dl Total Bilirubin (0.2-1) mg/dl AST (15-37) U/L ALT (12-78) U/L Alkaline Phosphatase (45-117) U/L Ammonia (11-32) umol/L Total Creatine Kinase (39-308) U/L Troponin I (0-0.045) ng/ml Total Protein (6.4-8.2) gm/dl Albumin (3.4-5.0) gm/dl Globulin (2.5-4.0) gm/dl Albumin/Globulin Ratio (0.9-2) TSH (0.300-4.500) uIu/ml Urine Color Yellow Urine Appearance Clear (Clear) Urine pH 7.5 (4.5-7.5) Ur Specific [place] 1.009 (1.000-1.030) Urine Protein Negative (Negative) Urine Glucose (UA) Negative (Negative) Urine Ketones Negative (Negative) Urine Blood Negative (Negative) Urine Nitrite Negative (Negative) Urine Bilirubin Negative (Negative) Urine Urobilinogen Negative (Negative) Ur Leukocyte Esterase Negative (Negative) Salicylates (2.8-20) mg/dl Urine Opiates Screen Neg (Neg) Ur Methadone, Qual Neg (Neg) Acetaminophen (10-30) ug/ml Urine Barbiturates Neg (Neg) Ur Phencyclidine (PCP) Neg (Neg) U Amphetamin/Meth Scrn Neg (Neg) MDMA (Ecstasy) Screen Neg (Neg) U Benzodiazepines Scrn Pos H (Neg) Ur Cocaine Metabolite Neg (Neg) U Marijuana (THC) Screen Neg (Neg) Ethyl Alcohol mg/dL (0-3) mg/dl Imaging Data Radiologist's Impression: Radiology results as stated below per my review and the radiologist's interpretation: XR chest 1V portable HISTORY: weakness COMPARISON: None. FINDINGS: The lungs are clear. Cardiac silhouette is normal in size. No pleural effusions. No pneumothorax. IMPRESSION: No acute process. Electronically signed by: Junito Dooley M.D. 04/30/2019 4:[address] head/brain wo con CLINICAL HISTORY: 38 years-old Male with ams. Acutely altered mental status TECHNIQUE: Multiple axial CT images of the head were obtained without contrast. A dose lowering technique was utilized adhering to the principles of ALARA. CT DOSE: 2150.48 mGycm COMPARISON: None. FINDINGS: Motion degraded exam. No acute intracranial hemorrhage, midline shift, intracranial mass, hydrocephalus, territorial ischemia or abnormal extra-axial collection. The calvarium is intact. Mild mucosal thickening about the ethmoid air cells. Mastoid air cells are clear. Soft tissues and orbits are unremarkable. IMPRESSION: Motion degraded exam without acute intracranial abnormality. The above report was generated using voice recognition software. It may contain grammatical, syntax or spelling errors. Electronically signed by: Laron Mixon M.D. 04/30/2019 4:55 PM ECG Data Attestation: I personally reviewed and interpreted this ECG as follows: Indication: altered mental status Rate (beats per minute): 82 Rhythm: normal sinus Findings: + other (normal intervals); no PVC, no ST depression and no ST elevation Blood Pressure Blood Pressure Findings: Normal blood pressure Blood Pressure Disposition: did not require urgent referral Head Trauma GCS Score: 12 MDM Narrative Patient is a 38-year-old gentleman presenting via ambulance today being found unresponsive at home in his bathroom sitting in front of dog food. Possibly fell to the ground as there is a slight abrasion on his left banegas and right knuckle. No significant tenderness or deformity here and doubt acute fractures in these areas. Patient seen going to the bathroom at 1 PM and found around 215pm by family. Received 2 doses Narcan for EMS with possibly mild improvement. Not hypoglycemic for EMS. Patient does have a history of prior benzodiazepine overdose several years ago. Patient states his name groggily and his making attempts to try to get out of bed on my initial exam. Occasionally following some commands. Not in any respiratory distress. No fever reported. Given additional Narcan here with out significant change. Is on Suboxone daily but gets this delivered daily and does not manage himself. No other drug paraphernalia were noted from family or EMS. Basic labs looking for possible infectious, traumatic, or metabolic/drug process were sent. No significant abnormality of the CBC. Patient's ammonia just above normal I do not believe contributing. Alcohol level is undetectable. No significant hypercarbia noted. Electrolites and kidney functions look stable. Slight LFT bump of unclear significance. No significant Tylenol or acetaminophen elevation. UDS is positive for benzodiazepines and according to stepfather girlfriend present this was the patient's prior drug of abuse as well. Again there is been no recent confirmation of his abuse. Fits with the clinical scenario that he is overdosed on a benzodiazepine. Again no significant improvement of Narcan while here. Patient's bit more aroused but very confused and kicking in the room on later reevaluation. Medical staff are assisting with his care with physical restraint. For patient and staff safety several doses of intramuscular Haldol and Ativan were given. Physical and chemical strain again for patient and staff safety given his altered mental status. Discussed with the mount and the hospitalist for admission given this to monitor for further improvement. Impression & Plan Altered mental status, Benzodiazepine overdose, Agitation Critical Care Time Critical Care Time: Yes Total Critical Care Time: 40 I have personally spent 40 minutes of critical care time in the direct management of this patient. This includes bedside care for his AMS and agitation, interpretation of diagnostic studies, and testing, discussion with consultants [facility], patient, and family members, and other required patient management activities. These 40 minutes is in excess of all separately billable procedures. Discharge Plan Visit Data Chief Complaint: Unresponsive Stated Complaint: UNRESPONSIVE ED Provider: Ignacio Worthy Discharge Problem: Altered mental status, Benzodiazepine overdose, Agitation Patient Disposition: Being Evaluated by Hospitalist Forms Stand Alone Forms: My [facility] Prescriptions Prescriptions: No Action buprenorphine HCl 8 mg tablet, sublingual 8 mg sublingual QAM RF: 0 Medical Marijuana 1 dose inhalation UD PRN (Reason: Pain) RF: 0 Referrals Referrals: PCP,NO [Primary Care Provider] - Discharge Problem: Altered mental status Qualifiers: Altered mental status type: unspecified Qualified Code(s): R41.82 - Altered mental status, unspecified Benzodiazepine overdose Qualifiers: Encounter type: initial encounter Injury intent: undetermined intent Qualified Code(s): T42.4X4A - Poisoning by benzodiazepines, undetermined, initial encounter The scribe's documentation has been prepared under my direction and personally reviewed by me in its entirety. I confirm that the note above accurately reflects all work, treatment, procedures, and medical decision making performed by me.
[2019-04-30] MEDS ORDERED: LORazepam 2 MG/4 ML VIAL IV PRN (21:06)
[2019-04-30] MEDS ORDERED: D5NSS + 20MEQ KCL 1,000 ML IV SCH (21:06)
[2019-04-30] MEDS ORDERED: ICU PROTOCOL FOR HYPERGLYCEMIA PRN ×2 (21:06→21:08)
--- NOTE | 2019-04-30 21:50 | Critical Care Consultation ---
Date of Consultation April 30, 2019 Assessment & Plan (1) Acute encephalopathy: Reason Critically Ill: 38-year-old male with acute agitation requiring physical and chemical restraints secondary to acute encephalopathy PLAN: Neuro: Acute encephalopathy -Suspect polysubstance abuse -Elevated ammonia level will recheck in morning -CT scan unremarkable Resp: Obstructive apnea -Patient was snoring respirations relieved with nasal trumpet -Maintain end-tidal CO2 to monitor for additional apneas Fluids/Renal: Elevated CK -Likely in setting of acute agitation -Recheck in morning Continue maintenance fluid GI/Nutrition: Transaminitis -Check triglycerides, lipase, lipid panel in a.m. DVT prophylaxis: Lovenox Endocrine: ICU hyperglycemia protocol Vascular access: Peripheral IVs Code Status: Full code I have personally spent 50 minutes of critical care time in the direct management of this patient. This is a life/limb threatening event. This includes time spent evaluating patient, direct bedside care, chart review, placing orders, interpretation of diagnostic studies, discussion with consultants, patient, and/or family members regarding treatment decisions, as well as other required patient management activities. This time is exclusive of all separately billable procedures, and teaching time and separate from and in addition to any other critical care service time. Present on Admission?: Yes (2) Obstructive apnea: Present on Admission?: No (3) Abnormal LFTs: Present on Admission?: Yes (4) Hyperammonemia: Present on Admission?: Yes (5) Elevated CK: Present on Admission?: No (6) Agitation: History of Present Illness Attending Physician: Bryn Mckeon Patient is a 38-year-old male who was seen in the emerge status. In the emergency department he required IV chemical restraint in addition to physical restraint. History is obtained from prior records as well as the emergency department. I have reviewed his PDMP for which he receives chronic narcotics, his medical record indicated he is prescribed medical marijuana, his urine drug screen is not positive for this. There is reported prior history of benzodiazepine dependence he has positive for benzos on his urine drug screen. Currently the patient is somnolentAnd only responsive to deep painful stimuli Allergies Allergy/AdvReac Type Severity Reaction Status Date / Time codeine Allergy Mild Unknown Unverified 04/30/19 16:11 Penicillins Allergy Mild Unknown Unverified 04/30/19 16:11 Home Medications Home Medications Medication Instructions Recorded Confirmed Type Medical Marijuana 1 dose INHALATION UD PRN 04/30/19 04/30/19 History buprenorphine HCl 8 mg SUBLINGUAL QAM 04/30/19 04/30/19 History Patient History Medical History Social anxiety disorder (Chronic) Panic disorder (Chronic) Benzodiazepine abuse (Acute) Benzodiazepine dependence (Acute) Overuse of medication (Acute) Chronic narcotic dependence (Chronic) No known health problems Surgical History No history of previous surgery Family History Other Family history non-contributory Social History marital status: Single marital status details: has significant other Current Living Situation: Significant Other Current Living Situation Comment: lives with girlfriend and 2 children in [place] current occupational status: employed 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 Feels Safe at Home: Yes Smoking Status: Current every day smoker packs per day: 1 ; Hx Alcohol Use: Yes Alcohol type: beer Alcohol Intake Frequency: Holidays/Special Occasions Hx Substance Use: No Review of Systems Review of Systems: Unobtainable due to reduced consciousness Physical Exam Physical Exam: General: Well-nourished middle-age male appears stated age I have reviewed the recorded vital signs Neurological: RASS score: -4, Moves all 4 extremities, Psychological: Glascow Coma Scale: Eyes: 1, Verbal 2, Motor 5, Total 8 not following complex commands Eyes: Pupils are equal, round and reactive to light, anicteric sclera. Symmetrical lids. HENT: Oropharynx is clear, mucous membranes are mildly dry. Neck: Supple. Symmetric. trachea midline. No thyromegaly. Cardiovascular: Normal peripheral perfusion. Distal pulses and capillary refill intact. No JVD. Respiratory: Respirations are non-labored, no accessory muscle use. Breath sounds are equal. Gastrointestinal: Soft. Non-distended. Lymphatic: No cervical lymphadenopathy. Musculoskeletal: No deformity. No clubbing nor cyanosis. Results & Data Vital Signs (Past 12 Hours) Vital Signs Temp Pulse Pulse Resp BP BP Pulse Ox 04/30/19 20:20 88 25 H 90/56 L 04/30/19 20:01 74 24 90/56 L 93 04/30/19 19:30 76 25 H 95/52 L 93 04/30/19 19:00 80 27 H 103/61 94 04/30/19 18:27 90 22 135/85 96 04/30/19 17:16 98 H 20 112/56 L 04/30/19 16:46 82 23 132/78 04/30/19 16:03 80 20 118/84 98 04/30/19 15:48 36.7 C 89 20 112/77 97 04/30/19 15:46 80 21 112/77 97 PG Care Time/CCT Total # of Minutes Spent Total Time Spent with Patient: Total time spent is greater than 50% in coordination of care (as documented) at patient's floor/unit and/or counseling patient: Critical Care Time: Yes Total Critical Care Time: 50
[2019-04-30] MEDS: FAMOTIDINE 20 MG in SYRINGE 3 ML IV SCH (22:02)
[2019-04-30] MEDS: NORMOSOL-R 1,000 ML IV SCH (22:02)
[2019-04-30] MEDS ORDERED: RAPID SEQUENCE INDUCTION BAG ONE (22:42)
[2019-04-30] MEDS ORDERED: KETAMINE HCL INJ 50 MG/ML 10 ML VIAL IV STA (22:53)
[2019-05-01 05:16] LABS: Basophils # (auto) 0.03 K/uL (0-0.2); Basophils % (auto) 0.3 %; Eosinophils # (auto) 0.63 K/uL (0-0.5); Eosinophils % (auto) 6.5 %; Hematocrit (blood only) 43.8 % (42-52); Hemoglobin 15.4 g/dL (14.0-18.0); Immature Granulocytes # (auto) 0.02 K/uL (0.00-0.02); Immature Granulocytes % (auto) 0.2 %; Lymphocytes % (auto) 31.2 %; Mean Corpuscular Hgb Conc 35.2 g/dL (32-36); Mean Corpuscular Volume 90.7 fL (80-100); Mean Platelet Volume 10.2 fL (7.4-10.4); Monocytes # (auto) 0.95 K/uL (0.11-0.59); Monocytes % (auto) 9.9 %; Neutrophils % (auto) 51.9 %; Platelet Count 173 K/uL (130-400); RDW Coefficient of Variation 13.4 % (11.5-14.5); RDW Standard Deviation 44.4 fL (36.4-46.3); Red Blood Count 4.83 M/uL (4.7-6.1); White Blood Count 9.63 K/uL (4.8-10.8)
[2019-05-01 05:23] LABS: INR 1.1 (0.9-1.1); Prothrombin Time 10.9 Seconds (9.0-12.0)
[2019-05-01 05:46] LABS: Albumin Level 3.5 gm/dl (3.4-5.0); Calcium 8.6 mg/dl (8.5-10.1); Creatinine Clr Calc Pharmacy 121.1 ml/min; Est GFR (African American) 131.3; Est GFR (Non-African American) 113.3; Magnesium 2.1 mg/dl (1.8-2.4); Potassium 3.6 mmol/L (3.5-5.1)
[2019-05-01 05:50] LABS: Bilirubin Direct 0.2 mg/dl (0-0.2); Bilirubin,Total 0.8 mg/dl (0.2-1); Total Protein 6.8 gm/dl (6.4-8.2)
[2019-05-01] MEDS: NORMOSOL-R 1,000 ML IV SCH ×2 (07:33→17:16)
--- NOTE | 2019-05-01 08:12 | Critical Care Progress Note ---
Date of Service May 01, 2019 Assessment & Plan (1) Acute encephalopathy: Reason Critically Ill: 38-year-old male with acute agitation requiring physical and chemical restraints secondary to acute encephalopathy PLAN: Neuro: Acute encephalopathy -Suspect polysubstance abuse -HFP and ammonia levels elevated on admission, trending down -CT scan unremarkable Resp: Obstructive apnea -Patient removed nasal trumpet overnight, no longer indicated at this time as apnea has resolved -We will maintain end-tidal CO2 monitoring for now Fluids/Renal: Elevated CK -Likely in setting of acute agitation -We will recheck this a.m. Continue maintenance fluid GI/Nutrition: Transaminitis -HFP trending down, monitor DVT prophylaxis: Lovenox Endocrine: ICU hyperglycemia protocol Vascular access: Peripheral IVs Code Status: Full code I have personally spent 35 minutes of critical care time in the direct management of this patient. This is a life/limb threatening event. This includes time spent evaluating patient, direct bedside care, chart review, placing orders, interpretation of diagnostic studies, discussion with consultants, patient, and/or family members regarding treatment decisions, as well as other required patient management activities. This time is exclusive of all separately billable procedures, and teaching time and separate from and in addition to any other critical care service time. (2) Obstructive apnea: (3) Abnormal LFTs: (4) Hyperammonemia: (5) Elevated CK: (6) Agitation: Supervising Physician Co-Signing Physician Notes I have personally evaluated and examined this patient. I agree with assessment and plan of Stephanie MANRIQUE. Patient mental status slowly improving, transaminitis I suspect is secondary to some aspect of fatty liver disease versus drug-induced transaminitis, will check viral hepatitis panel. There is no evidence of meningismus he does not show signs of systemic infection. I believe this is all metabolic secondary to abuse of substances. Continued ICU observation with end-tidal CO2 monitoring. His acute agitation seems to have resolved he required additional doses of chemical restraint overnight. I discussed the case with Dr. Mckeon of the hospitalist medicine service. Subjective 38-year-old male who presented originally brought into the ED for altered mental status. Was given Narcan, became combative and was given Haldol Ativan in the ED. Transferred to ICU, given ketamine overnight. Symptoms have improved this a.m. patient is still confused and requiring restraints as he continues to attempt to remove medical equipment. HFP trending down this a.m., will repeat ammonia and CPK. Review of Systems Review of Systems: Unobtainable due to cognitive status Physical Exam Eyes: PERRL, conjunctivae normal, anicteric sclerae Neck: trachea midline, no thyromegaly Respiratory: normal respiratory effort, lungs clear to auscultation Cardiovascular: RRR, no murmur, no edema Heart Sounds: normal S1 and normal S2 Gastrointestinal (Abdomen): normal bowel sounds, soft, nontender, no hepatosplenomegaly Musculoskeletal: no cyanosis or clubbing, extremities motor strength 5/5 Skin: no rashes, warm and dry Neurologic: moves all extremities and + confused Speech / Cognition: + abnormal cognition Cranial Nerves: PERRL Results & Data Vital Signs (Past 12 Hours) Vital Signs Temp Pulse Pulse Resp BP BP Pulse Ox 05/01/19 05:30 69 108/76 98 05/01/19 05:00 87 130/84 97 05/01/19 04:30 67 107/70 94 05/01/19 04:00 69 101/64 92 05/01/19 03:30 67 107/72 96 05/01/19 03:00 64 103/67 95 05/01/19 02:30 63 103/65 95 05/01/19 02:00 64 98/65 L 96 05/01/19 01:30 64 94/62 L 96 05/01/19 01:00 67 98/62 L 95 05/01/19 00:30 68 95/65 L 95 05/01/19 00:00 71 102/63 94 04/30/19 23:30 73 102/66 94 04/30/19 23:00 73 116/71 98 04/30/19 22:49 78 125/67 99 04/30/19 22:30 75 96 04/30/19 22:00 67 92/61 L 96 04/30/19 21:03 36.4 C L 76 28 H 93/66 L 92 04/30/19 20:20 88 25 H 90/56 L PG Care Time/CCT Total # of Minutes Spent Total Time Spent with Patient: Total time spent is greater than 50% in coordination of care (as documented) at patient's floor/unit and/or counseling patient: Critical Care Time: Yes Total Critical Care Time: 35
[2019-05-01] MEDS: FAMOTIDINE 20 MG in SYRINGE 3 ML IV SCH ×2 (10:14→21:33)
[2019-05-01] MEDS: ENOXAPARIN INJ 40 MG/0.4 ML SYR SQ SCH (10:14)
--- NOTE | 2019-05-01 17:47 | Hospitalist Progress Note ---
Date of Service May 01, 2019 Assessment & Plan (1) Altered mental status: IMPROVING. 2nd to apparent overdose of multiple substances (probable). Tox screen + for benzodiazepines (tox screen was obtained BEFORE he had received ativan in the ER). However, benzo overdose would not fully explain his symptoms and presentation. Had severe agitation, combativeness, and altered MS. Suspect some other illicit hallucinogenic agent such as bath salts, etc. I still see no evidence of any metabolic causes of his presentation or infectious etiology. CT head was negative. Continue supportive care. Appreciate ICU assistance. (2) Chronic narcotic dependence: Takes 8mg of daily suboxone. His mother apparently administers this to him daily. He does not have the bottle of suboxone in his possession at his home per the significant other. Goes to suboxone clinic in [facility]). I do not think he overdosed on narcotics as he had little response to copious amounts of narcan at his home by EMS and in our ER. (3) Social anxiety disorder: Severe by history. Does not follow with psych or any medical provider. I spoke briefly with his parents today that he will need psych follow-up for this issue as an outpatient. (4) Benzodiazepine overdose: Tox screen positive for benzos but this was unlikely to be the sole cause of his presentation. See above. (5) Abnormal LFTs: Suspect toxin-related. Numerous illicit substances can cause a transaminitis. No evidence of tylenol overdose (no tylenol bottles found at the scene, etc). Doubt related to alcohol (etoh level 0). AST and ALT improved today. Agree with checking HepA, B and C titers. Repeat LFTs in am. (6) Elevated CK: Continue IVF. Repeat CPK am. (7) DVT prophylaxis: lovenox 40mg daily parents, significant other updated at bedside today Subjective Patient groggy during my bedside assessment but does awaken to his name being called. He knew it was May 01. He knew he was in the hospital. His parents and girlfriend were at bedside. They had numerous questions about his care. Apparently had a nasal trumpet in place due to snoring/upper airway turbulence. He pulled this out overnight. He needed ketamine for sedation. Restraints have been removed. He awoke at one point and said to me (and his family) "I'm not taking that risperidone." Review of Systems Review of Systems: Unobtainable due to cognitive status Physical Exam Constitutional: + not well nourished and no acute distress groggy/sleepy but awakens ENMT: external ear and nose normal, oropharynx normal Respiratory: normal respiratory effort, lungs clear to auscultation Cardiovascular: Rate/Rhythm: regular rate and regular rhythm Heart Sounds: normal S1 and normal S2; no murmur Vessels: no JVD Gastrointestinal (Abdomen): normal bowel sounds, soft, nontender, no hepatosplenomegaly Musculoskeletal: legs very thin Neurologic: no focal motor deficits Psychiatric: Orientation: oriented x 3 Results & Data Vital Signs (Past 12 Hours) Vital Signs Temp Pulse Pulse Resp BP BP Pulse Ox 05/01/19 17:00 73 90/60 L 94 05/01/19 16:00 71 94/54 L 96 05/01/19 15:00 67 94/55 L 98 05/01/19 14:00 37.0 C 59 L 61 16 117/75 117/75 99 05/01/19 13:00 36.9 C 68 68 20 109/70 109/70 96 05/01/19 12:00 36.9 C 76 66 20 108/47 L 108/47 L 100 05/01/19 11:30 61 99/64 L 98 05/01/19 11:00 36.9 C 66 68 18 104/62 104/62 97 05/01/19 10:30 63 95/64 L 97 05/01/19 10:00 36.8 C 65 54 L 16 107/75 107/75 97 05/01/19 09:43 86 98/66 L 99 05/01/19 09:00 67 62 16 97/63 L 98/66 L 95 05/01/19 08:30 61 101/69 100 05/01/19 08:00 37.2 C 68 64 18 107/68 109/68 96 05/01/19 07:31 72 119/65 100 05/01/19 07:00 62 109/68 98 05/01/19 06:30 69 92/64 L 92 05/01/19 06:00 70 107/67 93 Laboratory Results Laboratory Results - last 24 hr 04/30/19 04/30/19 05/01/19 20:49 Unknown 04:56 WBC 9.63 RBC 4.83 Hgb 15.4 Hct 43.8 MCV 90.7 MCH 31.9 MCHC 35.2 RDW Std Deviation 44.4 RDW Coeff of Hussein 13.4 Plt Count 173 MPV 10.2 Immature Gran % (Auto) 0.2 Neut % (Auto) 51.9 Lymph % (Auto) 31.2 [place] % (Auto) 9.9 Eos % (Auto) 6.5 Baso % (Auto) 0.3 Immature Gran # (Auto) 0.02 Neut # (Auto) 5.00 Lymph # (Auto) 3.00 [place] # (Auto) 0.95 H Eos # (Auto) 0.63 H Baso # (Auto) 0.03 PT INR Sodium Potassium Chloride Carbon Dioxide Anion Gap BUN Creatinine Est Cr Clr Drug Dosing Est GFR ( Amer) Est GFR (Non-Af Amer) BUN/Creatinine Ratio Glucose POC Glucose Calcium Magnesium Total Bilirubin Direct Bilirubin AST ALT Alkaline Phosphatase Ammonia Total Creatine Kinase 406 H Total Protein Albumin Triglycerides Cholesterol LDL Cholesterol, Calc VLDL Cholesterol, Calc HDL Cholesterol Cholesterol/HDL Ratio Nasal Screen MRSA (PCR) Negative 05/01/19 05/01/19 05/01/19 04:56 04:56 09:16 WBC RBC Hgb Hct MCV MCH MCHC RDW Std Deviation RDW Coeff of Hussein Plt Count MPV Immature Gran % (Auto) Neut % (Auto) Lymph % (Auto) [place] % (Auto) Eos % (Auto) Baso % (Auto) Immature Gran # (Auto) Neut # (Auto) Lymph # (Auto) [place] # (Auto) Eos # (Auto) Baso # (Auto) PT 10.9 INR 1.1 Sodium 143 Potassium 3.6 Chloride 109 H Carbon Dioxide 30 Anion Gap 4.0 BUN 11 Creatinine 0.80 Est Cr Clr Drug Dosing 121.1 Est GFR ( Amer) 131.3 Est GFR (Non-Af Amer) 113.3 BUN/Creatinine Ratio 14.0 Glucose 76 POC Glucose Calcium 8.6 Magnesium 2.1 Total Bilirubin 0.8 Direct Bilirubin 0.2 AST 109 H ALT 170 H Alkaline Phosphatase 80 Ammonia < 10.0 L Total Creatine Kinase Total Protein 6.8 Albumin 3.5 Triglycerides 70 Cholesterol 160 LDL Cholesterol, Calc 95 VLDL Cholesterol, Calc 14 HDL Cholesterol 51 Cholesterol/HDL Ratio 3 Nasal Screen MRSA (PCR) 05/01/19 05/01/19 09:16 11:11 WBC RBC Hgb Hct MCV MCH MCHC RDW Std Deviation RDW Coeff of Hussein Plt Count MPV Immature Gran % (Auto) Neut % (Auto) Lymph % (Auto) [place] % (Auto) Eos % (Auto) Baso % (Auto) Immature Gran # (Auto) Neut # (Auto) Lymph # (Auto) [place] # (Auto) Eos # (Auto) Baso # (Auto) PT INR Sodium Potassium Chloride Carbon Dioxide Anion Gap BUN Creatinine Est Cr Clr Drug Dosing Est GFR ( Amer) Est GFR (Non-Af Amer) BUN/Creatinine Ratio Glucose POC Glucose 77 Calcium Magnesium Total Bilirubin Direct Bilirubin AST ALT Alkaline Phosphatase Ammonia Total Creatine Kinase 752 H Total Protein Albumin Triglycerides Cholesterol LDL Cholesterol, Calc VLDL Cholesterol, Calc HDL Cholesterol Cholesterol/HDL Ratio Nasal Screen MRSA (PCR) PG Care Time/CCT Total # of Minutes Spent Total Time Spent with Patient: Total time spent is greater than 50% in coordination of care (as documented) at patient's floor/unit and/or counseling patient: (1) Altered mental status Altered mental status type: unspecified Qualified Code(s): R41.82 - Altered mental status, unspecified (2) Benzodiazepine overdose Encounter type: initial encounter Injury intent: undetermined intent Qualified Code(s): T42.4X4A - Poisoning by benzodiazepines, undetermined, initial encounter
[2019-05-02] MEDS ORDERED: BUPRENORPHINE HCL 8 MG SUBL SL ONE (00:15)
[2019-05-02] MEDS: NORMOSOL-R 1,000 ML IV SCH (04:15)
[2019-05-02 04:51] LABS: Basophils # (auto) 0.02 K/uL (0-0.2); Basophils % (auto) 0.3 %; Eosinophils # (auto) 0.62 K/uL (0-0.5); Eosinophils % (auto) 8.5 %; Hematocrit (blood only) 41.7 % (42-52); Hemoglobin 14.6 g/dL (14.0-18.0); Immature Granulocytes # (auto) 0.01 K/uL (0.00-0.02); Immature Granulocytes % (auto) 0.1 %; Lymphocytes # (auto) 1.91 K/uL (1.2-3.4); Lymphocytes % (auto) 26.2 %; Mean Corpuscular Volume 88.3 fL (80-100); Mean Platelet Volume 10.2 fL (7.4-10.4); Monocytes # (auto) 0.59 K/uL (0.11-0.59); Monocytes % (auto) 8.1 %; Neutrophils # (auto) 4.15 K/uL (1.4-6.5); Neutrophils % (auto) 56.8 %; Platelet Count 163 K/uL (130-400); RDW Coefficient of Variation 12.7 % (11.5-14.5); RDW Standard Deviation 41.3 fL (36.4-46.3); Red Blood Count 4.72 M/uL (4.7-6.1)
[2019-05-02 05:04] LABS: INR 1.1 (0.9-1.1); Prothrombin Time 10.9 Seconds (9.0-12.0)
[2019-05-02 05:20] LABS: Albumin Level 3.3 gm/dl (3.4-5.0); BUN Creatinine Ratio 18.8 (10-20); Bilirubin Direct 0.3 mg/dl (0-0.2); Bilirubin,Total 1.3 mg/dl (0.2-1); Calcium 8.1 mg/dl (8.5-10.1); Creatinine Clr Calc Pharmacy 130.9 ml/min; Est GFR (African American) 134.9; Est GFR (Non-African American) 116.4; Magnesium 1.9 mg/dl (1.8-2.4); Potassium 3.8 mmol/L (3.5-5.1); Total Protein 6.3 gm/dl (6.4-8.2)
[2019-05-02] MEDS ORDERED: GLUCOSE 10 TABS/TUBE PO ONE (05:53)
--- NOTE | 2019-05-02 07:45 | Critical Care Progress Note ---
Date of Service May 02, 2019 Supervising Physician Co-Signing Physician Notes I have personally evaluated and examined this patient. I agree with assessment and plan of Stephanie MANRIQUE. Patient alert and oriented, eating breakfast, mother and girlfriend at bedside. Patient reports he was taking higher doses of his anxiolytic which he reports is metabolized in the liver and excreted by the kidneys. He had a known hepatitis C infection previously he had not been treated with interferon. Per his report he states he was antibody positive but supposedly did not have an active nor chronic infection. He was concerned as he stated he was having unprotected intercourse with his girlfriend, I have advised both who were present to use protection as well as the girlfriend to seek testing for hepatitis C in addition to other diseases. I have advised the patient to follow-up with a manufacturing specialist as there are new medications to treat chronic hepatitis C infections. The patient did appear to be rather knowledgeable as he was curious if the liver enzyme elevation could possibly be related to other medications or substances he has ingested recently. Patient did admit to extensive and heavy "partying" recently. I discussed the case with Dr. Mckeon, patient is stable for downgrade out of the ICU. Results & Data Vital Signs (Past 12 Hours) Vital Signs Pulse BP Pulse Ox 05/02/19 06:00 78 112/71 98 05/02/19 05:00 65 87/51 L 92 05/02/19 04:00 63 94/55 L 96 05/02/19 03:00 64 87/52 L 96 05/02/19 02:00 66 102/66 94 05/02/19 01:00 61 111/74 97 05/02/19 00:00 71 110/64 98 05/01/19 23:00 66 91/60 L 97 05/01/19 22:00 75 97/55 L 97 05/01/19 21:00 80 100/58 L 95 05/01/19 20:00 81 92/60 L 96 PG Care Time/CCT Total # of Minutes Spent Total Time Spent with Patient: Total time spent is greater than 50% in coordin ation of care (as documented) at patient's floor/unit and/or counseling patient: Critical Care Time: No
[2019-05-02] MEDS: ENOXAPARIN INJ 40 MG/0.4 ML SYR SQ SCH (09:25)
--- NOTE | 2019-05-02 09:43 | Critical Care Progress Note ---
Date of Service May 02, 2019 Assessment & Plan (1) Acute encephalopathy: Reason Critically Ill: 38-year-old male with acute agitation requiring physical and chemical restraints secondary to acute encephalopathy PLAN: Neuro: Acute encephalopathy -Suspect polysubstance abuse -HFP and ammonia levels elevated on admission, trending down -CT scan unremarkable -Patient reports history of hep C, hepatitis panel pending, -Per talk with hospitalist, will order hepatitis RNA screen to test for active virus -Patient was also advised to follow-up outpatient by Dr. Huber Resp: No respiratory symptoms at this time, patient displays nonlabored breathing on room air Fluids/Renal: Elevated CK -Likely in setting of acute agitation GI/Nutrition: Transaminitis -Plan as discussed above DVT prophylaxis: Patient ambulating, will likely be discharged soon Endocrine: Euglycemic Vascular access: Peripheral IVs Code Status: Full code (2) Obstructive apnea: (3) Abnormal LFTs: (4) Hyperammonemia: (5) Elevated CK: (6) Agitation: Subjective 38-year-old male with past medical history of polysubstance abuse who was admitted for extreme agitation and altered mental status requiring restraints and sedation. This a.m. the patient is alert and oriented with euthymic affect. Patient states he feels normal and is ready for discharge. Per talks with the hospitalist who will likely be discharged this a.m. Dr. Huber talked with patient with mother and girlfriend present in regards to elevated liver enzymes. Patient stated he had a history of hepatitis C virus but did not think it was active. Primary team will send RNA to test for active virus and patient was advised to follow-up outpatient. Also noted that her girlfriend was advised to seek testing outpatient. Please see my attendings note for further discussion of plan. Review of Systems Eyes: no worsening vision and no problem reported Ear, Nose, Mouth, Throat: no problem reported Respiratory: Patient denies wheezing, cough, shortness of breath Cardiovascular: Additional Comments: Patient denies chest pain or palpitations Gastrointestinal: Patient denies abdominal pain, nausea vomiting, or diarrhea Genitourinary: no dysuria and no urinary incontinence Musculoskeletal: no limited range of motion, no muscle weakness and no body aches Neurologic: no gait abnormality, no generalized weakness, no loss of sensation, no tingling and no lack of coordination Psychiatric: no behavioral changes, no depression and no confusion Physical Exam Eyes: PERRL, conjunctivae normal, anicteric sclerae Neck: trachea midline, no thyromegaly Respiratory: normal respiratory effort, lungs clear to auscultation Cardiovascular: RRR, no murmur, no edema Heart Sounds: normal S1 and normal S2 Gastrointestinal (Abdomen): normal bowel sounds, soft, nontender, no hepatosplenomegaly Musculoskeletal: no cyanosis or clubbing, extremities motor strength 5/5 Skin: no rashes, warm and dry Neurologic: PERRL, EOMI, accommodation nl, no face palsy, no dysarthria Psychiatric: A+Ox3, euthymic affect Results & Data Vital Signs (Past 12 Hours) Vital Signs Pulse BP Pulse Ox 05/02/19 08:00 78 05/02/19 06:00 78 112/71 98 05/02/19 05:00 65 87/51 L 92 05/02/19 04:00 63 94/55 L 96 05/02/19 03:00 64 87/52 L 96 05/02/19 02:00 66 102/66 94 05/02/19 01:00 61 111/74 97 05/02/19 00:00 71 110/64 98 05/01/19 23:00 66 91/60 L 97 05/01/19 22:00 75 97/55 L 97 05/01/19 21:00 80 100/58 L 95 PG Care Time/CCT Total # of Minutes Spent Total Time Spent with Patient: Total time spent is greater than 50% in coordination of care (as documented) at patient's floor/unit and/or counseling p atient:
[2019-05-02 10:24] LABS: Hepatitis B Surface Antigen Neg (Neg)
--- NOTE | 2019-05-02 10:46 | Discharge Summary ---
Date of Service date of admission - April 30, 2019 date of discharge - May 02, 2019 Admission HPI Per Admitting Provider 38yo male with history of severe anxiety disorder, social anxiety disorder, benzodiazepine abuse, and chronic suboxone use who presents from his home in [place] via EMS after having been found in his bathroom at home with altered mental status. The patient was considerably altered and could not provide any information during my assessment. Thus, all information was gathered from the chart as well as from his girlfriend with whom he lives. The patient's girlfriend states that at 745 this am she was preparing to go to work and Mr Arora at that time was awake, alert, oriented and in his usual state of health. The patient was at his home all day with his 2 children, ages 7 and 13. 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 Sometime about 330pm the patient's step-father left the house and went to the business next door. A few minutes later, upon his return to the house, the step-father found Mr Arora in the bathroom altered. He was apparently leaning up against the wall with a bowl of dog food close by and was altered. EMS was summoned to the house. Upon their arrival 4 doses of intra-nasal narcan was given to him. He was then given 2 more doses of IV narcan upon ambulance transport. He ultimately needed restraints. The narcan given in the ambulance had only a transient effect. Upon arrival to [facility] he continued to be altered. Additional narcan of 2mg was given IV without any effect on his mental status per staff members. He was combative, and needed 10mg of IM haldol and 2mg of IM ativan to become more calm. His girlfriend reports no obvious illicit drug use recently or in the past. He does not have access to prescription benzodiazepines or other controlled substances. He takes chronic suboxone, 8mg daily, but his mother keeps it at her house and she administers it to him herself. His girlfriend takes 2 antidepressants (SSRIs) but no controlled substances. Girlfriend reports he drinks little alcohol (1-2 beers/month) but the ER record states he drank earlier in the day. Lastly, his girlfriend reports that Mr Arora has had significant stressors causing increased anxiety. He apparently has been suffering from bad dreams which has led to worsening anxiety. He has had concerns about his girlfriend's health as well. During my assessment the patient was altered, shifting constantly on the bed, and was combative. Principal Diagnosis toxic encephalopathy 2nd to accidental overdose of probable multiple substances Discharge Exam Constitutional average body habitus; no acute distress, not ill appearing and no altered mental status ENMT external ear and nose normal, oropharynx normal Throat: no posterior oropharynx abnormality Neck trachea midline, no thyromegaly Respiratory normal respiratory effort, lungs clear to auscultation Cardiovascular Rate/Rhythm: regular rate and regular rhythm Heart Sounds: normal S1 and normal S2; no murmur Vessels: posterior tibial pulses present and dorsalis pedis pulses present; no JVD Gastrointestinal (Abdomen) normal bowel sounds, soft, nontender, no hepatosplenomegaly Neurologic no focal motor deficits Psychiatric Orientation: oriented x 3 Discharge Data Allergies Allergy/AdvReac Type Severity Reaction Status Date / Time codeine Allergy Mild Unknown Unverified 04/30/19 16:11 Penicillins Allergy Mild Unknown Unverified 04/30/19 16:11 Consultations critical care - Kush Huber DO Ordered Studies CT head - negative for acute process. Hospital Course (1) Toxic encephalopathy: Altered mental status was likely a combination of multiple substances. Tox screen was indeed positive for benzodiazepines. After the patient's sensorium cleared he was able to tell us that he had taken a medication from a friend for his severe anxiety. By his description it sounds like this was some sort of synthetic benzodiazepine purchased off the internet? We could not confirm what that substance was. Certainly someone that overdoses on a benzodiazepine is heavily sedated but not typically agitated, confused and combative the way he was at presentation. Thus, the team was concerned that there were additional substances contained in that medication he had gotten from his friend. Regardless his mental status returned to baseline. On day of discharge he was counseled on the dangers of taking unknown substances from a friend or family member. He was advised ONLY to take medications obtained from a licensed healthcare provider. He was counseled to seek out mental health services for his severe anxiety and panic disorder. (2) Altered mental status: RESOLVED. 2nd to apparent overdose of multiple substances (probable). Tox screen was positive for benzodiazepines (tox screen was obtained BEFORE he had received ativan in the ER). However, benzo overdose would not have fully explained his symptoms at presentation. (Had severe agitation, combativeness, and altered MS). Suspect some other illicit hallucinogenic agent. There was no evidence of any metabolic causes of his presentation or infectious etiology. CT head was negative. He was admitted to the ICU following ER presentation as he needed restraints and other IV sedatives for the first 24 hours of his stay. (3) Chronic narcotic dependence: Takes 8mg of daily suboxone. His mother apparently administers this to him daily. He does not have the bottle of suboxone in his possession at his home per the significant other. Goes to suboxone clinic in [place] ([facility]). I do not think he overdosed on narcotics as he had little response to copious amounts of narcan at his home by EMS and in our ER. (4) Social anxiety disorder: Severe by history. Does not follow with psych or any medical provider. Needs psych follow-up for this issue as an outpatient. (5) Benzodiazepine overdose: Tox screen positive for benzos but this was unlikely to be the sole cause of his presentation. See above. (6) Abnormal LFTs: Initially was suspected to be toxin-related. Numerous illicit substances can cause a transaminitis. No evidence of tylenol overdose (no tylenol bottles found at the scene, etc). Doubt related to alcohol (etoh level 0). The AST and ALT remained elevated while hospitalized. Once his mental status improved he reported a prior history of HepC. HepC antibody was indeed positive, and a qualitative HepC RNA test returned positive as well. He will need outpatient GI follow-up for HepC treatment. He was advised against using any alcohol or tylenol. (7) Elevated CK: Received gentle IV fluids for this. The CPK was only mildly elevated during the stay (peak - 750). Advised to drink copious fluids post-discharge. (8) Hepatitis C: see discussion above in "abnormal LFTs." Of note - HepA and HepB titers were negative. (9) Discharge planning issues: Patient does not have PCP - this will be set up for him post-discharge. Lastly, because he has young children that live with him, and in light of the events that led to this hospitalization, he was informed by social work that we were under obligation to report the situation to [facility]. A referral would then be made to [facility] ([facility]). Total Time Total Time Spent Total Time Spent (In Minutes): 45 Total Time Includes: Examination of the Patient, Discharge Planning, Medication Reconciliation and Communication With Other Providers Discharge Plan Discharge Items Patient Disposition: Home - Self-Care Reason For Visit: UNRESPONSIVENESS; SUSPECTED OVERDOSE. Discharge Diagnosis: Overdose - resolved. Abnormal liver function tests. Severe panic disorder. Discharge Goals: Diagnostic testing and Therapeutic intervention Activity: As commented below Activity Comment: take it easy for 1-2 days then gradually increase activity Exercise/Sports: Gradually increase as tolerated Driving/Machine Use: Resume 1 day after discharge Non-emergency contact: Primary Care Provider Call non-emergency contact if: you have any medication questions, your symptoms worsen, your pain is unusual for you, your pain is concerning for you and your temperature is above 100.5 Follow-up/Referrals: PCP,NO [Primary Care Provider] - (We will try to obtain a new family doctor for you in [place]. We will work on this in the coming days. ) Diet: Regular Addtl Provider Instructions: You were admitted for confusion/unresponsiveness after being found in your home in an altered state of consciousness. Your care was given in the ICU as you required several treatments to remain safe and comfortable. You improved over 2 days. It is believed that your confusion was a result of various substances taken on the afternoon of 04/30/19. We also found that your liver function blood tests were abnormal. They remained mildly high/abnormal during your stay. We have sent testing for Hepatitis A, B, and C; these labs are pending at this time. Recommendations - 1. avoid taking any medication or substance from a friend for anxiety. This is dangerous and can be life-threatening. Medications NOT prescribed by a doctor can contain unknown substances that can cause organ damage and even . 2. avoid tylenol (acetaminophen) due to concern for your liver. 3. avoid alcohol due to concern for your liver. 4. please talk with your new family doctor about your anxiety as there are many treatment options for controlling your anxiety and panic attacks. 5. drink plenty of fluids over the next 2-3 days. Water is best. 6. resume your normal medications. 7. please abstain from sexual intercourse until the results of your hepatitis testing has returned. If you do engage in sexual intercourse please use a condom at all times. Follow-up -- see your new family doctor within 1 week. Again we will attempt to set you up with one in [place]. Return to [facility] if -- * you have fever over 100.5 degrees * you have severe panic attack or anxiety attack * you have yellowing of the eyes or skin * you have abdominal pain, nausea or vomiting * any other concerns Prescriptions: Continued buprenorphine HCl 8 mg tablet, sublingual 8 mg sublingual QAM RF: 0 Medical Marijuana 1 dose inhalation UD PRN (Reason: Pain) RF: 0 Stand-Alone Forms: My [facility]/Other Patient Handouts: ED Overdose Accidental Discharge Orders: Discharge Order (Routine); Ordered 05/02/19 Ordered By: Bryn Mckeon Admission Data Admit Date/Time: 04/30/19 19:47 Attending Provider: Bryn Mckeon Admit Provider: Bryn Mckeon Primary Care Provider: PCP,NO Other Providers: Kush Huber Service: Intensive Care Unit Other Interventions: Discharge Summary Assessment (RN) Last Done: 05/02/19 10:26 Pending Studies at Discharge: Yes Studies:: Hepatitis blood work. DC Date/Time DO NOT enter until pt leaves facility: 05/02/19 10:49
[2019-05-03 13:53] LABS: 7-Aminoclonaz, Confirm NEGATIVE NG/ML (CUTOFF=25); Hydro-Alp Ur, GC/MS NEGATIVE NG/ML (CUTOFF=25); Hydroxyethylflurazepam, Conf NEGATIVE NG/ML (CUTOFF=50); Hydroxytriazolam NEGATIVE NG/ML (CUTOFF=50); Lorazepam, Ur GC/MS NEGATIVE NG/ML (CUTOFF=50); Nordiazepam, Confirm NEGATIVE NG/ML (CUTOFF=50); Oxazepam Ur, GC/MS NEGATIVE NG/ML (CUTOFF=50); Temazepam, Confirm NEGATIVE NG/ML (CUTOFF=50)
== END 2019-05-02 10:49 | disposition home or self-care (01) | DRG 918 ==
LOC: ED 15:40 → 1E 19:47
DX: T50.901A Poisoning by unspecified drugs, medicaments and biological substances, accidental (unintentional), initial encounter; G93.40 Encephalopathy, unspecified; F11.20 Opioid dependence, uncomplicated; Z79.899 Other long term (current) drug therapy; E72.20 Disorder of urea cycle metabolism, unspecified; T42.4X1A Poisoning by benzodiazepines, accidental (unintentional), initial encounter; F40.10 Social phobia, unspecified; R06.81 Apnea, not elsewhere classified; F17.200 Nicotine dependence, unspecified, uncomplicated; R45.1 Restlessness and agitation